=== PATIENT | female | born 1995 | race Caucasian/White ===

== ENCOUNTER 2019-12-25 09:56 | Emergency (ER) | payer BC, OTHER ==
[2019-12-25 11:45] LABS: Hematocrit 37 % (35-47); Mean Corpuscular HGB Conc 32 g/dL (31-36); Mean Corpuscular Hemoglobin 26 pg (27-31); Mean Corpuscular Volume 79 fL (80-97); Mean Platelet Volume 6.4 fL (7.4-10.4); Platelet Count 270 10^3/uL (150-450); Red Cell Distribution Width 21 % (10-15); White Blood Count 8.1 10^3/uL (3.5-10.8)
[2019-12-25 11:49] LABS: ABS Eosinophils 0.5 10^3/ul (0-0.6); ABS Lymphocytes 1.1 10^3/ul (1.0-4.8); ABS Monocytes 0.6 10^3/ul (0-0.8); ABS Neutrophils 5.9 10^3/ul (1.5-7.7); Eosinophil % 6.6 %; Nucleated Red Blood Cells % 0.1
[2019-12-25 12:03] LABS: ALT 15 U/L (7-52); AST 16 U/L (13-39); Albumin 4.2 g/dL (3.2-5.2); Albumin/Globulin Ratio 1.6 (1-3); Alkaline Phosphatase 81 U/L (34-104); Anion Gap 9 mmol/L (2-11); BUN/Creatinine Ratio 12.1 (8-20); Blood Urea Nitrogen 7 mg/dL (6-24); CO2 Carbon Dioxide 24 mmol/L (22-32); Calcium 8.8 mg/dL (8.6-10.3); Chloride 106 mmol/L (101-111); EGFR African American 157.3 (>60); Globulin 2.7 g/dL (2-4); Glucose 99 mg/dL (70-100); Potassium 3.8 mmol/L (3.5-5.0); Sodium 139 mmol/L (135-145); Total Protein 6.9 g/dL (6.4-8.9)
[2019-12-25 12:08] LABS: HCG Pregnancy < 0.60 mIU/mL
[2019-12-25] MEDS ORDERED: Morphine 4 MG/ML VIAL (1 ml) 4 MG/ML VIAL IV ONE (14:04)
[2019-12-25] MEDS ORDERED: Ondansetron INJ* 2 MG/ML VIAL IV ONE (14:04)
[2019-12-25] MEDS ORDERED: NS 0.9% 1000 ML** 1,000 ML IV ONE ×2 (14:04→18:09)
--- NOTE | 2019-12-25 14:04 | ED ---
Abdominal Pain/Female - HPI Summary HPI Summary: This patient is a 24 y/o female, with hx of Crohn's disease, presenting to [facility] c/o abdominal pain x3 days. Patient described diffuse abdominal pain as cramping. She notes associated symptoms of nausea. Denies vomiting. Patient states she always has diarrhea. Her abdominal pain is aggravated with eating and has not eaten much in the past 24 hours secondary to pain. Patient reports for the past 2 days her pain was rated 8/10 in severity. Today she rates her abdominal pain 4/10 while in the waiting room, but currently rates it 8/10. Denies fever, chest pain, shortness of breath. Patient follows up at [facility] in [facility] for her Crohn's disease. She takes Stelara for her Crohn's. Her last flare was about 1-2 years ago. SHx: bowel resection 3 years ago. LMP: a couple of days ago. Home Medications Medication Instructions Recorded Confirmed Type Levothyroxine TAB* [Synthroid TAB*] 100 mcg PO DAILY 12/25/19 12/25/19 History Ustekinumab [Stelara] 90 mg SUBCUT .[id number] 12/25/19 12/25/19 History - History of Current Complaint Chief Complaint: EDAbdPain Stated Complaint: ABD PAIN/NAUSEA/DIZZY PER PT Time Seen by Provider: 12/25/19 13:54 Hx Obtained From: Patient Onset/Duration: Lasting Days, Still Present Timing: Days Severity Currently: Severe Pain Intensity: 8 Pain Scale Used: 0-10 Numeric Location: Diffuse Radiates: No Character: Cramping Aggravating Factor(s): Food Alleviating Factor(s): Nothing Associated Signs and Symptoms: Positive: Nausea, Diarrhea. Negative: Fever, Chest Pain, Vomiting Allergies/Adverse Reactions: Allergies Allergy/AdvReac Type Severity Reaction Status Date / Time metronidazole [From Flagyl] Allergy Nausea And Verified 12/25/19 09:59 Vomiting Home Medications: Home Medications Levothyroxine TAB* [Synthroid TAB*] 100 mcg PO DAILY 12/25/19 [History Confirmed 12/25/19] Ustekinumab [Stelara] 90 mg SUBCUT .[id number] 12/25/19 [History Confirmed 12/25/19 ] PMH/Surg Hx/FS Hx/Imm Hx Endocrine/Hematology History: Denies: Hx Diabetes Cardiovascular History: Denies: Hx Hypertension GI History: Reports: Hx Crohn's Disease - Surgical History Surgical History: Yes Surgery Procedure, Year, and Place: Bowel resection in 2017 Infectious Disease History: No Infectious Disease History: Denies: Traveled Outside the [place] in Last 30 Days - Family History Known Family History: Negative: Cardiac Disease, Hypertension - Social History Alcohol Use: None Substance Use Type: Reports: None Smoking Status (MU): Never Smoked Tobacco Have You Smoked in the Last Year: No Review of Systems Negative: Fever Negative: Chest Pain Negative: Shortness Of Breath Positive: Abdominal Pain, Diarrhea, Nausea All Other Systems Reviewed And Are Negative: Yes Physical Exam - Summary Physical Exam Summary: VITAL SIGNS: Reviewed. GENERAL: Patient is a well-developed and nourished female who is lying comfortable in the stretcher. Patient is not in any acute respiratory distress. HEAD AND FACE: Normocephalic and atraumatic. EYES: PERRLA, EOMI x 2, No injected conjunctiva. EARS: Hearing grossly intact. Ear canals and tympanic membranes are WNL. MOUTH: Oropharynx within normal limits. NECK: Supple, trachea is midline, no adenopathy, no JVD. CHEST: Symmetric, no tenderness at palpation. LUNGS: Clear to auscultation bilaterally. No wheezing or crackles. CVS: RRR, S1 and S2 present, no murmurs or gallops appreciated. ABDOMEN: Soft, diffuse abdominal tenderness with some guarding. No rebound. No signs of distention. Positive bowel sounds. EXTREMITIES: FROM in all major joints, no edema, no cyanosis or clubbing. NEURO: Alert and oriented x 3. No acute neurological deficits. Speech is normal. SKIN: Dry and warm. Triage Information Reviewed: Yes Vital Signs On Initial Exam: Initial Vitals Temp Pulse Resp BP Pulse Ox 99.1 F 118 16 125/75 99 12/25/19 09:59 12/25/19 09:59 12/25/19 09:59 12/25/19 09:59 12/25/19 09:59 Vital Signs Reviewed: Yes Procedures - Sedation Patient Received Moderate/Deep Sedation with Procedure: No Diagnostics - Vital Signs Vital Signs Temp Pulse Resp BP Pulse Ox 12/25/19 11:50 98.1 F 99 14 105/64 98 12/25/19 09:59 99.1 F 118 16 125/75 99 - Laboratory Lab Results: Lab Results 12/25/19 12/25/19 12/25/19 Range/Units 11:33 11:33 11:33 WBC 8.1 (3.5-10.8) 10^3/uL RBC 4.70 (3.70-4.87) 10^6 /uL Hgb 12.0 (12.0-16.0) g/dL Hct 37 (35-47) % MCV 79 L (80-97) fL MCH 26 L (27-31) pg MCHC 32 (31-36) g/dL RDW 21 H (10-15) % Plt Count 270 (150-450) 10^3/uL MPV 6.4 L (7.4-10.4) fL Neut % (Auto) 72.4 % Lymph % (Auto) 13.0 % [place] % (Auto) 7.6 % Eos % (Auto) 6.6 % Baso % (Auto) 0.4 % Absolute Neuts (auto) 5.9 (1.5-7.7) 10^3/ul Absolute Lymphs (auto) 1.1 (1.0-4.8) 10^3/ul Absolute Monos (auto) 0.6 (0-0.8) 10^3/ul Absolute Eos (auto) 0.5 (0-0.6) 10^3/ul Absolute Basos (auto) 0.0 (0-0.2) 10^3/ul Absolute Nucleated RBC 0.0 10^3/ul Nucleated RBC % 0.1 Sodium 139 (135-145) mmol/L Potassium 3.8 (3.5-5.0) mmol/L Chloride 106 (101-111) mmol/L Carbon Dioxide 24 (22-32) mmol/L Anion Gap 9 (2-11) mmol/L BUN 7 (6-24) mg/dL Creatinine 0.58 (0.51-0.95) mg/dL Est GFR ( Amer) 157.3 (>60) Est GFR (Non-Af Amer) 130.0 (>60) BUN/Creatinine Ratio 12.1 (8-20) Glucose 99 (70-100) mg/dL Lactic Acid 0.7 (0.5-2.0) mmol/L Calcium 8.8 (8.6-10.3) mg/dL Total Bilirubin 0.20 (0.2-1.0) mg/dL AST 16 (13-39) U/L ALT 15 (7-52) U/L Alkaline Phosphatase 81 (34-104) U/L Total Protein 6.9 (6.4-8.9) g/dL Albumin 4.2 (3.2-5.2) g/dL Globulin 2.7 (2-4) g/dL Albumin/Globulin Ratio 1.6 (1-3) Beta HCG, Quant < 0.60 mIU/mL Result Diagrams: 12/25/19 11:33 12/25/19 11:33 Lab Statement: Any lab studies that have been ordered have been reviewed, and results considered in the medical decision making process. - CT Abdomen/Pelvis CT CT Interpretation Completed By: Radiologist Summary of CT Findings: IMPRESSION: Enlarged mesenteric lymph nodes. No obstruction. Dr. Robb has reviewed this report. - EKG 19:02 Cardiac Rate: NL - at 85 bpm. EKG Rhythm: Sinus Rhythm EKG Comparison: No Significant Change - similar to prior on 06/25/19. Summary of EKG Findings: EKG at 1902 shows normal sinus rhythm at [address] elevations. Similar to prior EKG on 06/25/19. This EKG was reviewed and interpreted by ED physician. Re-Evaluation - Re-Evaluation First Eval Re-Evaluation Time: 18:13 Change: Improved Comment: Her pain has improved and does not want any more pain medications. Second Eval Re-Evaluation Time: 19:06 Change: Improved Comment: Reviewed results with patient. Patient will be discharged home with follow up from PCP. Abdominal Pain Fem Course/Dx - Course Course Of Treatment: This patient is a 24 y/o female, with hx of Crohn's disease , presenting to [facility] c/o abdominal pain x3 days. Patient described diffuse abdominal pain as cramping. She notes associated symptoms of nausea. Denies vomiting. Patient states she always has diarrhea. Her abdominal pain is aggravated with eating and has not eaten much in the past 24 hours secondary to pain. Patient reports for the past 2 days her pain was rated 8/10 in severity. Today she rates her abdominal pain 4/10. Denies fever, chest pain, shortness of breath. Patient follows up at [facility] in [facility] for her Crohn's disease. She takes Stelara for Crohn's. Her last flare was about 1-2 years ago. SHx: bowel resection 3 years ago. LMP: a couple of days ago. In the ED course the patient was placed in a surveillance system monitor, IV access was obtained, IV fluids were started. Blood test w/o a significant abnormality. Abdominal and pelvic CT IMPRESSION: ENLARGED MESENTERIC LYMPH NODES. NO OBSTRUCTION. In the ED course the patient was given Zofran for nausea and vomiting and morphine for the pain. After these medications were given the patients symptoms resolved. Upon reassessment: Patient reports that the pain has resolved. The abdomen is soft without any tenderness and with positive bowel sounds. The patients blood pressure before discharge is a 101/71. Patient reports that she usually has a low blood pressure. At this point the patient is hemodynamically stable, alert and oriented 3. I discussed all the findings and test results with the patient. Patient was instructed to return to the emergency room immediately if any of the symptoms return worsens. Plan of care was discussed with the patient and understands and agrees. All questions were answered at patient satisfaction. There were no further complaints or concerns. Lung exam before discharge: CTA B/L. Good air exchange. No wheezing or crackles heard. CVS: S1 and S2 present. No murmurs appreciated. Patient is alert and oriented x 3. Patient is hemodynamically stable. Patient will be discharged home with follow up from her PCP in the next 2-3 days. - Diagnoses Differential Diagnosis: Positive: Appendicitis, Constipation, Diverticulitis, Renal Colic, Urinary Tract Infection Provider Diagnoses: Lower abdominal pain Discharge ED - Sign-Out/Discharge Documenting (check all that apply): Patient Departure - Discharge home - Discharge Plan Condition: Stable Disposition: HOME Patient Education Materials: Acute Abdominal Pain (ED) Referrals: [facility] [Outside] Additional Instructions: FOLLOW UP WITH YOUR PRIMARY CARE PROVIDER IN 2-3 DAYS. RETURN TO THE ED FOR ANY NEW OR WORSENING SYMPTOMS. - Billing Disposition and Condition Condition: STABLE Disposition: Home - Attestation Statements Document Initiated by Scribe: Yes Documenting Scribe: Liz Javier Provider For Whom Scribe is Documenting (Include Credential): Jonathan Robb MD Scribe Attestation: ILiz, scribed for Jonathan Robb MD on 12/25/19 at 2055. Scribe Documentation Reviewed: Yes Provider Attestation: The documentation as recorded by the scribe, Liz Javier accurately reflects the service I personally performed and the decisions made by me, Jonathan Robb MD Status of Scribe Document: Viewed
[2019-12-25 14:23] LABS: C Reactive Protein 6.46 mg/L (<8.01)
[2019-12-25] MEDS ORDERED: Iohexol 300* (CONTRAST) 10 ML SDV IV ONE (15:10)
[2019-12-25 19:11] VITALS: BP 101/71
[2019-12-25 19:11] LABS: Urine Bacteria 1+ (Absent); Urine Red Blood Cell 1+(3-5/hpf) (Absent); Urine Squamous Epithelial Cell Present (Absent); Urine White Blood Cell Trace(0-5/hpf) (Absent)
[2019-12-25 19:21] LABS: Urine Appearance Clear; Urine Bilirubin Negative (Negative); Urine Blood 1+ (Negative); Urine Color Yellow; Urine Glucose Negative (Negative); Urine Ketones Negative (Negative); Urine Nitrite Negative (Negative); Urine Protein Negative (Negative); Urine Urobilinogen Negative (Negative)
== END 2019-12-25 19:18 | disposition home or self-care (01) ==
LOC: ED 09:56
DX: R10.30 Lower abdominal pain, unspecified (principal); K50.90 Crohn's disease, unspecified, without complications; R11.0 Nausea; R19.7 Diarrhea, unspecified; Z79.890 Hormone replacement therapy
CPT/HCPCS: 36415; 74177; 80053; 81003; 81015; 83605; 84702; 85025; 86140; 87086; 96361; 96374; 96375; 99284; J2270; J2405; Q9967